=== PATIENT | female | born 1965 | race American Indian/Alaskan Native ===

== ENCOUNTER 2018-09-05 02:19 | Emergency (ER) | payer OTHER ==
[2018-09-05 02:30] VITALS: BP 147/94
[2018-09-05] MEDS ORDERED: NORCO 5/325 PO ONE (03:24)
[2018-09-05] MEDS ORDERED: BOOSTRIX IM ONE (03:24)
[2018-09-05] MEDS ORDERED: XYLOCAINE 1% MPF 5 mL INFILTRATI ONE (03:25)
--- NOTE | 2018-09-05 04:32 | Emergency Department Report ---
ED Laceration HPI - HPI Chief Complaint: Wound/Laceration Stated Complaint: LACERATION TO FINGER Time Seen by Provider: 09/05/18 03:24 Severity: moderate Tetanus Status: Not up to Date Laceration Symptoms: Yes Pain, No Foreign Body Sensation, No Numbness, No Weakness Other History: right wrist laceration 6 cm superficial , bleeding controlled via self applied direct pressure, no nerve tendon or muscle damage, ED Review of Systems ROS: Stated complaint: LACERATION TO FINGER Other details as noted in HPI Constitutional: denies: chills, fever Eyes: denies: eye pain, eye discharge, vision change ENT: denies: ear pain, throat pain Respiratory: denies: cough, shortness of breath, wheezing Cardiovascular: as per HPI Endocrine: no symptoms reported Gastrointestinal: denies: abdominal pain, nausea, diarrhea Genitourinary: denies: urgency, dysuria, discharge Musculoskeletal: denies: back pain, joint swelling, arthralgia Skin: other (right wrist laceration ). denies: rash, lesions Neurological: as per HPI Psychiatric: denies: anxiety, depression Hematological/Lymphatic: denies: easy bleeding, easy bruising ED Past Medical Hx - Past Medical History Hx Hypertension: Yes Hx Asthma: Yes Additional medical history: Hypothyroid - Surgical History Past Surgical History?: Yes Additional Surgical History: bilateral hip surgery - Social History Smoking Status: Never Smoker Substance Use Type: Alcohol - Medications Home Medications: Home Medications Medication Instructions Recorded Confirmed Last Taken Type Levothyroxine [Synthroid] 100 mcg PO QAM 03/01/13 07/11/15 02/28/13 09:30 History 100 Albuterol Sulfate [Proventil HFA] 1 - 2 puff IH Q4H PRN #1 [email or web address] 04/15/13 07/11/15 Unknown Rx ALBUTEROL NEB's [Proventil] 2.5 mg IH TID PRN 07/11/15 07/11/15 Unknown History Amlodipine Besylate/Benazepril 1 each PO QDAY 07/11/15 07/11/15 Unknown History [Lotrel 10-20 mg] Budesoni/Formotero 160-4.5(Nf) 2 puff IH BID 07/11/15 07/11/15 Unknown History [Symbicort 160-4.5 (Nf)] Diclofenac EC [Voltaren] 25 mg PO QDAY 07/11/15 07/11/15 Unknown History Fluticasone [Flonase] 1 spray NS QDAY 07/11/15 07/11/15 Unknown History HYDROcodone/APAP 5-325 [[place] 1 each PO Q6HR PRN 07/11/15 07/11/15 Unknown History 5/325] Zolpidem [Ambien] 10 mg PO QHS 07/11/15 07/11/15 Unknown History predniSONE [Deltasone] 20 mg PO QDAY #5 tab 07/11/15 Unknown Rx Acetaminophen [Acetaminophen TAB] 1,000 mg PO QID PRN #30 tablet 09/05/18 Unknown Rx cephALEXin [Keflex] 500 mg PO Q8HR 10 Days #30 cap 09/05/18 Unknown Rx Laceration Physical Exam - Exam General: right wrist laceration 6 cm vertical superficial, no nerve tendon or muscle damage, rom intact distal pulses intact all bleeding controlled, Vital signs noted. No distress. Alert and acting appropriately. Wound Length (cm): 6 (superficial ) Laceration Location: Upper Extremity (right palmar wrist /hand) Laceration Exam: Yes Normal Distal CMS, No Foreign Body, No Exposed Tendon, Vessel, or Nerve, No Tendon Injury ED Course Vital Signs 09/05/18 02:26 Temperature 97.8 F Pulse Rate 72 Respiratory 18 Rate Blood Pressure 147/94 O2 Sat by Pulse 98 Oximetry - Laceration /Wound Repair Right Palm Wrist Wound Location: upper extremity Wound Length (cm): 6 Wound's Depth, Shape: superficial, irregular Wound Explored: clean Irrigated w/ Saline (ccs): 40 Betadine Prep?: Yes Anesthesia: 1% Lidocaine Volume Anesthetic (ccs): 2 Wound Debrided: minimal Wound Repaired With: sutures Suture Size/Type: 4:0, proline Number of Sutures: 12 (running ) Progress: This is a 6 cm vertical laceration to the right palmar wrist no tenderness in the nerve involvement range of motion is intact distal pulses intact [place] [employer] less than 3 seconds bilaterally which are equal and strong wound cleaned with Betadine solution anesthesia with 1% lidocaine plain 2 mL infiltration 40 mL of sterile saline wounds visualized and explored no foreign bodies were closed with 4-0 Prolene running 12 sutures edges approximated R bleeding is controlled CMS remains intact sterile dressing applied, patient given wound care instructions , patient verbalized understanding of same ,patient tolerated the procedure with minimal distress ED Medical Decision Making - Medical Decision Making this is a right wrist laceration she procedure note for closure right wrist laceration BLEEDING is controlled sterile dressing is intact, distal pulses intact ,ENT CMS intact, patient will be DC'd to home in stable condition. Critical care attestation.: If time is entered above; I have spent that time in minutes in the direct care of this critically ill patient, excluding procedure time. ED Disposition Clinical Impression: Wrist laceration Qualifiers: Encounter type: initial encounter Laterality: right Qualified Code(s): S61.511A - Laceration without foreign body of right wrist, initial encounter Disposition: DC-01 TO HOME OR SELFCARE Is pt being admited?: No Does the pt Need Aspirin: No Condition: Stable Instructions: Laceration (ED), Suture Care (ED) Prescriptions: Acetaminophen [Acetaminophen TAB] 1,000 mg PO QID PRN #30 tablet PRN Reason: pain cephALEXin [Keflex] 500 mg PO Q8HR 10 Days #30 cap Referrals: CLIFFORD MENDEZ MD [Primary Care Provider] - 3-5 Days Forms: Work/School Release Form(ED) Time of Disposition: 04:43
== END 2018-09-05 05:10 | disposition home or self-care (01) ==
LOC: ED 02:19
DX: S61.511A Laceration without foreign body of right wrist, initial encounter (principal); I10 Essential (primary) hypertension; J45.909 Unspecified asthma, uncomplicated; E03.9 Hypothyroidism, unspecified; X58.XXXA Exposure to other specified factors, initial encounter; Y93.89 Activity, other specified; Y92.89 Other specified places as the place of occurrence of the external cause; Y99.8 Other external cause status
CPT/HCPCS: 90471; 90715; 99282